=== PATIENT | female | born 1950 | race Caucasian/White ===

== ENCOUNTER 2017-10-26 19:53 | Emergency (ER) | payer MEDICARE, BC ==
--- OUTSIDE RECORDS SUMMARY | 2017-10-26 20:09 | XMS REPORT ---
:1950 External Reference #:[id number] Author Organization [facility] Address [address] [place] [id number] Phone [phone] Care Team Providers Name Role Phone Enzo Hernandes M.D. Care Team Information Bellows Tester Unavailable Payers Type Date Identification Numbers Payment Provider Subscriber Medicare Primary Policy Number: [id number] Medicare NGS [place] M[place] PayID: [id number] [facility] [place] [address] Medigap Part B Policy Number: [id number] [facility] Federal Plan [place] Méndez PayID: [id number] [address] [address] [place] [address] Problems Description No Information Family History Date Family Member(s) Problem(s) Comments Father due to Alzheimer's () - PASSED AT 75 YOA Disease Mother Stroke Social History Type Date Description Comments Cigarette Use Former Cigarette Smoker ETOH Use Denies alcohol use Smoking Patient is a former smoker Recreational Drug Use Denies Drug Use Daily Caffeine Small Amount Of Coffee, Caffeinated Beverages Allergies, Adverse Reactions, Alerts Date Description Reaction Status Severity Comments 08/30/2017 Sulfa active Medications Medication Date Status Form Strength Qnty SIG Indications Ordering Provider Clopidogrel 08/30/ Active Tablets 75mg 14tabs 1 by Bala King Bisulfate Yessi Ahumada MD every day Amlodipine 08/30/ Active Tablets 5mg 90tabs 1 by R07.2 Bala King Besylate Yessi Ahumada MD every day Vitamin D High / Active Capsules 1000Unit 1 by Unknown Potency 0000 mouth every day Simvastatin / Active Tablets 10mg take 1 Unknown 0000 tablet by mouth 2X A Week Aspirin / Active Chewtabs 81mg 1 by Unknown 0000 mouth every day Ibuprofen / Active Tablets 600mg prn Unknown 0000 Metoprolol 00/00/ Hx Tablets ER 25mg 30tabs 1 by Bala Brown ER 0000 - 24HR mouth MD Brandyn 2017 day Tramadol HCL 0000/ Hx Tablets 50mg 1 by Unknown 0000 - mouth 08/30/ every 2018 hours as needed Lisinopril 00/ Hx Tablets 5mg 1 by Unknown 0000 - mouth 2017 day Chlorthalidone 00/ Hx Tablets 25mg 1 by Unknown 0000 - mouth 2017 day Omeprazole / Hx Capsules 20mg 1 by Unknown 0000 - DR mouth 2017 day Vitamin B / Hx Tablets One PO Unknown Complex 0000 - Qday 2017 Propranolol HCL / Hx Tablets 40mg 1 by Unknown 0000 - mouth bid 2018 Latanoprost / Hx Solution 0.005% 1 drop Unknown 0000 - both eyes 2018 every Other Day Osphena 00/ Hx Tablets 20mg One PO Unknown 0000 - qod 2017 Lumigan / Hx Solution 0.01% Unknown 0000 - 2017 Calcium 1000 + D / Hx Tablets 1000-800mg One PO Unknown 0000 - -Unit Every 08/30/ Day 2018 Immunizations CPT Code Status Date Vaccine Lot # [id number] Given 05/18/2017 Flu Vaccine [id number] Ordered 05/28/2017 Flu Vaccine Vital Signs Date Vital Result Comment 10/02/2017 BP Systolic 140 mmHg BP Diastolic 82 mmHg Heart Rate 60 /min Respiratory Rate 18 /min Height 67 inches 5'7" Weight 203.00 lb O2 % BldC Oximetry 98 % BMI (Body Mass Index) 31.8 kg/m2 BSA (Body Surface Area) 2.04 m2 08/30/2017 BP Systolic 150 mmHg BP Diastolic 88 mmHg Heart Rate 68 /min Respiratory Rate 18 /min Height 67 inches 5'7" Weight 208.00 lb O2 % BldC Oximetry 99 % BMI (Body Mass Index) 32.6 kg/m2 BSA (Body Surface Area) 2.06 m2 Results Test Date Test Result H/L Range Note Laboratory test finding 07/06/2017 LDL (Calc) 120 mg/dL High 20-99 1 HDL 65 mg/dL 35-85 2 Cholesterol 205 mg/dL High 50-199 1 Per NCEP ATP III Guidelines: Normal Population <130 Patients with medical conditions: CHD/DM Optimal: <100 Borderline high: 130-159 High: 160-189 Very high: >189 2 Per NCEP ATP III Guidelines: Results lower than 40 mg/dL are suggestive of increased risk for coronary artery disease. Results > or=to 60 mg/dL are considered a negative risk factor. Procedures Date CPT Code Description Status 08/30/2017 97006 Electrocardiogram Complete Completed Encounters Type Date Location Provider CPT E/M Dx Office Visit 10/02/2017 2:00p [place] [address] R07.2 I11.9 E78.2 R94.31 Office Visit 08/30/2017 1:20[place] [address] R07.2 I11.9 E78.2 R94.31 Plan of Care Future Appointment(s):10/03/2018 1:00 pm - Bala Ahumada MD at [id number] - Bala Ahumada, MDR07.2 Precordial painI11.9 Hypertensive heart disease without heart kttxoooE11.2 Mixed [id number] Abnormal electrocardiogram [ECG] [EKG]Follow up:1 yearRecommendations:I had the opportunity to go over and reviewed today's clinical assessment. We discussed history, clinical symptoms, physical examination findings in general and pertinent to patient's cardiac problemsin particular. Interval available laboratory data, cardiac specific diagnostic studies were reviewed as well. 1. Reviewed and revisited CATH data, previous stress evaluation findings and it' s significance with patient. Testing reviewed with the patient in detail. No coronary artery disease detected recommend aggressive risk factor management. recommend to investigate alternate causes of patient's chest pain Patient was much relieved with this information 2. Stage II hypertension is definedas a systolic blood pressure greater than 140 mmHg and a diastolic greater than 90 mmHg. Out of office blood pressure measurements are recommended to confirm the diagnosis of hypertension and for titration of blood pressure lowering medication in conjunction with possible telehealth counseling or clinical interventions. Recommend ideal body weight goal but at least a 1 kg reduction in body weight for most adults who are overweight. Expect about 1 mm of reduction in blood pressure for every 1 kg reduction in body weight. Consume a diet rich in fruits vegetables whole grains and low fat dairy products with reduced content of saturated and total fat. Reduction of dietary sodium with an optimal goal less than 1500 mg per day, but in for at least 1000 mg per day reduction in most adults. Recommend consumption of a diet rich in potassium. Recommend aerobic activity 90-150 minutes per week. To achieve 65-75% of heart rate reserve. Recommend dynamic resistant exercise 90-150 minutes per week.50- 80% one rep maximum. Recommend 6 exercises 3 sets per exercise and 10 repetitions per set. For isometric resistance 4??2 minute hand sample mounter maneuvers with 1 minute rest between exercises. 30-40% maximum voluntary contraction 3 sessions per week. Over 8-10 weeks. In individuals who drink alcohol reduce alcohol to less than 2 drinks for men, less than one drink daily for women. Use of blood pressure lowering medications is recommended for secondary prevention of recurrent cardiovascular disease events in patients with clinical cardiovascular disease and an average systolic blood pressure 130 mmHg or higher or an average of a diastolic blood pressure of 80 mmHg higher in for primary prevention in adults with an estimated 10 year atherosclerotic cardiac vascular disease risk of 10% or higher and a blood pressure of average of 130 mmHg or higher or an average diastolic blood pressure chlorthalidone had to be discontinued due to hypokalemia. We will take this opportunity to increase her amlodipine 3. Labs from primary care physician have arrived from July of 2017 total cholesterol 205, HDL is 65, LDL is 120 mg per dL. Patient recently started on low-dose simvastatin. Repeat labs in5 months. 4. isolated Q-wave in lead 3. Will obtain old echocardiograms for revie, but no evidence of heart attack nor of coronary artery disease at this timew
[2017-10-26 20:18] VITALS: BP 126/81
[2017-10-26] MEDS ORDERED: Mupirocin 2% OINT* TUBE TOPICAL ONE (21:30)
[2017-10-26] MEDS ORDERED: Cephalexin CAP* 500 MG PO ONE (21:30)
--- NOTE | 2017-11-19 10:52 | UC ---
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 patient believes this is not her issue - History of Current Complaint Chief Complaint: UCSkin Time Seen by Provider: 10/26/17 21:16 Stated Complaint: SKIN COMPLAINT Hx Obtained From: Patient ?: No Onset/Duration: Sudden Onset Timing: Constant Pain Intensity: 0 Pain Scale Used: 0-10 Numeric Location: Discrete Character: Redness Aggravating Factor(s): Nothing Alleviating Factor(s): Nothing Associated Signs & Symptoms: Positive: Negative - Allergy/Home Medications Allergies/Adverse Reactions: Allergies Allergy/AdvReac Type Severity Reaction Status Date / Time Sulfa (Sulfonamide Allergy Rash Verified 10/26/17 20:10 Antibiotics) Home Medications: Home Medications Metoprolol Succinate XL TAB* [Toprol XL TAB*] 12.5 mg PO DAILY 10/26/17 [ History Confirmed 10/26/17] Omeprazole CAP* [Prilosec CAP* 20 MG] 40 mg PO DAILY 10/26/17 [History Confirmed 10/26/17] Review of Systems Constitutional: Negative Skin: Rash Eyes: Negative ENT: Negative Respiratory: Negative Cardiovascular: Negative Gastrointestinal: Negative Genitourinary: Negative Motor: Negative Neurovascular: Negative Musculoskeletal: Negative Neurological: Negative Psychological: Negative Is Patient Immunocompromised?: No All Other Systems Reviewed And Are Negative: Yes PMH/Surg Hx/FS Hx/Imm Hx Previously Healthy: No Endocrine History: Dyslipidemia Cardiovascular History: Hypertension GI/ History: Gastroesophageal Reflux - Surgical History Surgical History: Yes Surgery Procedure, Year, and Place: left partial nephrectomy 2006. exploratory laparoscopy x2. ureter reconstruction - Family History Known Family History: Positive: Unknown - Social History Occupation: Retired Lives: With Family Alcohol Use: None Substance Use Type: None Smoking Status (MU): Never Smoked Tobacco Physical Exam Triage Information Reviewed: Yes Appearance: Well-Appearing, No Pain Distress Vital Signs: Initial Vital Signs Temp 98.5 F 10/26/17 20:10 Pulse 60 10/26/17 20:10 Resp 15 10/26/17 20:10 BP 126/81 10/26/17 20:10 Pulse Ox 100 10/26/17 20:10 Vital Signs Reviewed: Yes Eye Exam: Normal Eyes: Positive: Conjunctiva Clear ENT Exam: Normal ENT: Positive: Normal ENT inspection, Hearing grossly normal. Negative: Trismus , Muffled voice, Hoarse voice Dental Exam: Normal Neck exam: Normal Neck: Positive: Supple, Nontender Respiratory Exam: Normal Respiratory: Positive: No respiratory distress, No accessory muscle use Cardiovascular Exam: Normal Cardiovascular: Positive: RRR, Brisk Capillary Refill Musculoskeletal Exam: Normal Musculoskeletal: Positive: Strength Intact, ROM Intact Neurological Exam: Normal Neurological: Positive: Alert, Muscle Tone Normal Psychological Exam: Normal Skin Exam: Other - some honey crusting on erythemic rash left side of face Skin: Positive: Other Course/Dx - Course Course Of Treatment: stop doxy. change to keflex follow with dematologist - Diagnoses Provider Diagnoses: Impetigo Discharge - Sign-Out/Discharge Documenting (check all that apply): Discharge/Admit/Transfer - Discharge Plan Condition: Stable Disposition: HOME Prescriptions: Cephalexin CAP* [Keflex CAP*] 500 mg PO QID #27 cap Patient Education Materials: Diphenhydramine (By mouth), Impetigo (ED) Referrals: Dave Davis MD [Medical Doctor] - 10/29/17 - Billing Disposition and Condition Condition: STABLE Disposition: HOME
== END 2017-10-26 21:55 | disposition home or self-care (01) ==
LOC: UCCORT 19:53
DX: L01.00 Impetigo, unspecified (principal); E78.5 Hyperlipidemia, unspecified; I10 Essential (primary) hypertension; K21.9 Gastro-esophageal reflux disease without esophagitis; Z88.2 Allergy status to sulfonamides
CPT/HCPCS: 99213; A9270-GY; G0463